=== PATIENT | female | born 1975 | race Hispanic/Latino ===

== ENCOUNTER 2019-01-02 23:07 | Emergency (ER) | payer BC ==
[2019-01-03] MEDS ORDERED: SODIUM CHLORIDE 0.9% 1000ML 2,000 ML IV ONE (00:34)
[2019-01-03 00:40] LABS: BASOPHILS % (AUTO) 0.8 % (0.0-5.0); HEMATOCRIT 39.2 % (36-48); LYMPHOCYTES % (AUTO) 19.7 % (21.0-51.0); MEAN CORPUSCULAR HEMOGLOBIN 27.1 pg (27.0-33.0); MEAN CORPUSCULAR HGB CONC 33.7 g/dL (32.0-36.0); MEAN CORPUSCULAR VOLUME 80.4 fL (79-99); MONOCYTES % (AUTO) 9.2 % (3.0-13.0); NEUTROPHILS % (AUTO) 69.3 % (40.0-77.0); NUCLEATED RED BLOOD CELLS 0.1 % (0.0-0.19); PLATELET COUNT (AUTO) 227 K/uL (130-400); RED BLOOD CELL COUNT(AUTO) 4.87 MIL/uL (4.00-5.50); WHITE BLOOD COUNT (AUTO) 7.4 K/uL (4.8-10.8)
[2019-01-03 00:46] LABS: APPEARANCE,URINE Cloudy (CLEAR); BILIRUBIN,URINE Negative (NEGATIVE); COLOR,URINE Dark Yellow (YELLOW); GLUCOSE, URINE (UA) >=1000 mg/dL (NEGATIVE); KETONES,URINE 15 mg/dL (NEGATIVE); LEUKOCYTE ESTERASE ,URINE Small (NEGATIVE); NITRATE,URINE Negative (NEGATIVE); OCCULT BLOOD,URINE Moderate (NEGATIVE); PH,URINE 5.5 (5.0-8.0); PROTEIN,URINE POS 1+ mg/dL (NEGATIVE)
[2019-01-03 00:53] LABS: BACTERIA,URINE Few /HPF (None Seen); MUCUS,URINE Moderate LPF (None Seen); SQUAMOUS EPITHELIAL CELL,UR Few /HPF (0-2)
[2019-01-03 00:53] LABS: CREATININE 0.9 mg/dL (0.5-1.5); POTASSIUM 3.8 mmol/L (3.5-5.1)
[2019-01-03 00:57] LABS: BILIRUBIN,TOTAL 0.6 mg/dL (0.2-1.0); TOTAL PROTEIN, SERUM 7.9 g/dL (6.0-8.3)
== END 2019-01-03 02:00 | disposition home or self-care (01) ==
LOC: EDH 23:07
DX: B34.9 Viral infection, unspecified (principal); E11.65 Type 2 diabetes mellitus with hyperglycemia; E86.9 Volume depletion, unspecified; I10 Essential (primary) hypertension
CPT/HCPCS: 36415; 80053; 81001; 82550; 82948; 83605; 85025; 87804 ×2; 96360; 99285; J7030

== ENCOUNTER 2019-03-19 22:42 | Emergency (ER) | payer BC ==
[2019-03-20] MEDS ORDERED: SODIUM CHLORIDE 0.9% 1000ML 1,000 ML IV ONE (00:11)
[2019-03-20] MEDS ORDERED: CLINDAMYCIN 900 MG/D5% WATER 50 ML IV ONE (00:13)
[2019-03-20 00:24] LABS: BASOPHILS % (AUTO) 0.8 % (0.0-5.0); EOSINOPHILS % (AUTO) 1.6 % (0.0-8.0); HEMATOCRIT 38.5 % (36-48); LYMPHOCYTES % (AUTO) 15.5 % (21.0-51.0); MEAN CORPUSCULAR HEMOGLOBIN 25.9 pg (27.0-33.0); MEAN CORPUSCULAR HGB CONC 32.6 g/dL (32.0-36.0); MEAN CORPUSCULAR VOLUME 79.3 fL (79-99); MONOCYTES % (AUTO) 7.6 % (3.0-13.0); NEUTROPHILS % (AUTO) 74.5 % (40.0-77.0); PLATELET COUNT (AUTO) 195 K/uL (130-400); RED BLOOD CELL COUNT(AUTO) 4.86 MIL/uL (4.00-5.50); RED CELL DISTRIBUTION WIDTH 16.2 % (11.0-15.5); WHITE BLOOD COUNT (AUTO) 12.9 K/uL (4.8-10.8)
[2019-03-20 00:32] LABS: CREATININE 0.6 mg/dL (0.5-1.5); POTASSIUM 3.9 mmol/L (3.5-5.1)
[2019-03-20 00:36] LABS: ALBUMIN 3.2 g/dL (3.5-5.0); BILIRUBIN,TOTAL 0.4 mg/dL (0.2-1.0); TOTAL PROTEIN, SERUM 7.7 g/dL (6.0-8.3)
[2019-03-20] MEDS ORDERED: KETOROLAC TROMETHAMINE 30MG/ML ONE (01:23)
[2019-03-20] MEDS ORDERED: ORPHENADRINE CITRATE 30 MG/ML ML ONE (02:33)
== END 2019-03-20 02:51 | disposition home or self-care (01) ==
LOC: EDH 22:42
DX: L04.0 Acute lymphadenitis of face, head and neck (principal); L03.211 Cellulitis of face; I10 Essential (primary) hypertension; E11.9 Type 2 diabetes mellitus without complications; E78.00 Pure hypercholesterolemia, unspecified
CPT/HCPCS: 36415; 70460; 80053; 85025; 87040; 96365; 96375; 99285; J1885; J2360; J3490; J7030

== ENCOUNTER 2021-03-07 12:00 | Inpatient (IN) | payer BC ==
[~2021-03-07] VITALS: Ht 177.8 cm; Wt 106.9 kg
[2021-03-07 12:19] LABS: BASOPHILS % (AUTO) 0.4 % (0.0-5.0); EOSINOPHILS % (AUTO) 2.3 % (0.0-8.0); HEMATOCRIT 42.5 % (36-48); LYMPHOCYTES % (AUTO) 21.2 % (21.0-51.0); MEAN CORPUSCULAR HEMOGLOBIN 26.7 pg (27.0-33.0); MEAN CORPUSCULAR HGB CONC 30.8 g/dL (32.0-36.0); MEAN CORPUSCULAR VOLUME 86.7 fL (79-99); MONOCYTES % (AUTO) 7.7 % (3.0-13.0); NEUTROPHILS % (AUTO) 68.1 % (40.0-77.0); PLATELET COUNT (AUTO) 229 K/uL (130-400); RED CELL DISTRIBUTION WIDTH 14.4 % (11.0-15.5); WHITE BLOOD COUNT (AUTO) 11.5 K/uL (4.8-10.8)
[2021-03-08 09:41] VITALS: BP 138/82
[2021-03-08] MEDS ORDERED: METF-444 PO (10:24)
[2021-03-08] MEDS ORDERED: VALA500T PO (10:24)
[2021-03-08] MEDS ORDERED: INSU100V12 SQ (10:24)
[2021-03-09] VITALS (23 sets, daily range): BP systolic 104–147; BP diastolic 59–81
[2021-03-09] MEDS ORDERED: CEFAZOLIN SODIUM 100 GM IV SCH (06:00)
[2021-03-09] MEDS ORDERED: 0.9%NACL 1000ML 1,000 ML IV ONE (06:29)
[2021-03-09] MEDS: CEFAZOLIN SODIUM 1 GM VIAL ONE ×2 (07:00→08:14)
[2021-03-09] MEDS ORDERED: LIDOCAINE PF 100MG/5ML (2%) SYRINGE 5ML ONE (07:38)
[2021-03-09] MEDS ORDERED: SUCCINYLCHOLINE CHLORIDE 20 MG/ML 10 ML VIAL ONE (07:38)
[2021-03-09] MEDS ORDERED: ROCURONIUM 10MG/1ML SYR 10 MG/ML ML ONE ×2 (07:39→09:28)
[2021-03-09] MEDS ORDERED: PROPOFOL 10 MG/ML 20ML VIAL IV ONE (07:39)
[2021-03-09] MEDS ORDERED: FENTANYL CITRATE PF 50 MCG/1 ML 2ML VIAL ONE ×2 (07:39→09:56)
[2021-03-09] MEDS ORDERED: MIDAZOLAM HCL 1 MG/ML 2ML VIAL ONE (07:39)
[2021-03-09] MEDS ORDERED: MEPERIDINE-PF 25 MG/ML SYG ONE ×3 (09:10→11:02)
[2021-03-09] MEDS ORDERED: NEOSTIGMINE 5MG/5ML SYR IV ONE (09:55)
[2021-03-09] MEDS ORDERED: ONDANSETRON 4MG INJ ONE (09:55)
[2021-03-09] MEDS ORDERED: GLYCOPYRROLATE 1 MG/5 ML SYRINGE ONE (09:55)
[2021-03-09] MEDS ORDERED: CALDOLOR 800MG+NS 250ML 250 ML IV ONE (10:01)
[2021-03-09] MEDS ORDERED: BISACODYL 10 MG SUPP.RECT RC PRN (10:30)
[2021-03-09] MEDS ORDERED: SIMETHICONE 80 MG TAB.CHEW PO PRN (10:30)
[2021-03-09] MEDS ORDERED: PROMETHAZINE HCL 25 MG/ML 1ML AMPULE IM PRN (10:30)
[2021-03-09] MEDS: CALDOLOR 800MG+NS 250ML 250 ML IV SCH ×2 (10:30→17:46)
[2021-03-09] MEDS ORDERED: IBUPROFEN 600 MG TABLET PO PRN (10:30)
[2021-03-09] MEDS: PROMETHAZINE HCL 25 MG/ML 1ML AMPULE IM PRN ×2 (11:53→16:18)
[2021-03-09] MEDS: MEPERIDINE-PF 75 MG/ML SYG IM PRN ×3 (11:55→22:33)
[2021-03-09] MEDS: 0.9%NACL 1000ML 1,000 ML IV SCH (16:25)
[2021-03-09] MEDS: METFORMIN HCL 500 MG TABLET PO SCH (17:45)
[2021-03-09] MEDS: ACETAMINOPHEN WITH CODEINE 1 TAB TAB PO PRN (20:15)
[2021-03-09] MEDS: INSULIN GLARGINE 100 UNITS/ML 10 ML VIAL SQ SCH (21:00)
[2021-03-09] MEDS: DOCUSATE SODIUM 100 MG CAP PO PRN (21:33)
[2021-03-10] MEDS: CALDOLOR 800MG+NS 250ML 250 ML IV SCH (02:36)
[2021-03-10] MEDS: 0.9%NACL 1000ML 1,000 ML IV SCH (02:37)
[2021-03-10 03:29] VITALS: BP 111/51
[2021-03-10 06:21] LABS: HEMATOCRIT 35.4 % (36-48); MEAN CORPUSCULAR HEMOGLOBIN 26.4 pg (27.0-33.0); MEAN CORPUSCULAR HGB CONC 31.1 g/dL (32.0-36.0); MEAN CORPUSCULAR VOLUME 84.9 fL (79-99); RED BLOOD CELL COUNT(AUTO) 4.17 MIL/uL (4.00-5.50); RED CELL DISTRIBUTION WIDTH 14.3 % (11.0-15.5); WHITE BLOOD COUNT (AUTO) 14.9 K/uL (4.8-10.8)
[2021-03-10] MEDS: ACETAMINOPHEN WITH CODEINE 1 TAB TAB PO PRN ×3 (07:15→23:20)
[2021-03-10 07:26] VITALS: BP 97/54
[2021-03-10] MEDS: METFORMIN HCL 500 MG TABLET PO SCH ×2 (08:00→17:00)
[2021-03-10] MEDS: DOCUSATE SODIUM 100 MG CAP PO PRN ×2 (08:37→20:42)
[2021-03-10] MEDS: VALACYCLOVIR HCL 500 MG TABLET PO SCH (08:41)
[2021-03-10 11:51] VITALS: BP 90/51
[2021-03-10] MEDS: SIMETHICONE 80 MG TAB.CHEW PO PRN ×2 (13:35→20:42)
[2021-03-10 17:09] VITALS: BP 121/61
[2021-03-10] MEDS: IBUPROFEN 800 MG TAB PO PRN (19:03)
[2021-03-10 19:34] VITALS: BP 119/63
[2021-03-10] MEDS: INSULIN GLARGINE 100 UNITS/ML 10 ML VIAL SQ SCH ×2 (21:48→21:54)
[2021-03-10 23:32] VITALS: BP 136/74
[2021-03-11] MEDS: 0.9%NACL 1000ML 1,000 ML IV SCH (01:20)
[2021-03-11 03:21] VITALS: BP 129/73
[2021-03-11] MEDS: IBUPROFEN 800 MG TAB PO PRN (06:54)
[2021-03-11] MEDS: VALACYCLOVIR HCL 500 MG TABLET PO SCH (09:00)
[2021-03-11] MEDS: DOCUSATE SODIUM 100 MG CAP PO PRN (09:13)
[2021-03-11] MEDS: SIMETHICONE 80 MG TAB.CHEW PO PRN (09:13)
[2021-03-11] MEDS ORDERED: DOCU-116 PO (10:47)
[2021-03-11] MEDS: ACETAMINOPHEN WITH CODEINE 1 TAB TAB PO PRN (10:55)
[2021-03-11] MEDS ORDERED: IBUP-2077 PO (10:56)
[2021-03-11] MEDS ORDERED: ACET1TAB25 PO (10:57)
[2021-03-11 12:00] VITALS: BP 129/81
== END 2021-03-11 12:25 | disposition home or self-care (01) | DRG 743 ==
LOC: DAHIP 03-09 06:24 → WSH 03-09 11:40
PROVIDERS: ADMIT Obstetrics & Gynecology; ATTEND Obstetrics & Gynecology
PROC: 0UT90ZZ Resection of Uterus, Open Approach (ICD-10-PCS; principal; 2021-03-09 08:17)
DX: D25.9 Leiomyoma of uterus, unspecified (principal); Z20.822 Contact with and (suspected) exposure to COVID-19; N92.0 Excessive and frequent menstruation with regular cycle; I10 Essential (primary) hypertension; E11.9 Type 2 diabetes mellitus without complications; E78.00 Pure hypercholesterolemia, unspecified; E66.9 Obesity, unspecified; Z68.33 Body mass index [BMI] 33.0-33.9, adult; Z87.442 Personal history of urinary calculi
CPT/HCPCS: 36415; 82948; 84703; 85025; 85027; 86850; 86900; 86901; 87635; A4344; G0378; J0330; J0690; J1741; J2001; J2175; J2250; J2405; J2550; J2704; J2710; J3010; J3490; J7030

== ENCOUNTER 2023-06-17 11:26 | Emergency (ER) | payer BC ==
[~2023-06-17] VITALS: Ht 177.8 cm; Wt 106.6 kg
[~2023-06-17 11:26] MED LIST: ACET-2079 PO; DOCU-116 PO; IBUP-2077 PO; INSU100V12 SQ; METF-444 PO; VALA500T PO
[2023-06-17] MEDS ORDERED: FAMC500T8 PO (13:13)
[2023-06-17] MEDS ORDERED: METH4TAB3 PO (13:13)
[2023-06-17 13:42] VITALS: BP 156/80; PULSE 76; RESP 18; O2SAT 96
== END 2023-06-17 13:45 | disposition home or self-care (01) ==
LOC: EDH 11:26
DX: G51.0 Bell's palsy (principal); I10 Essential (primary) hypertension; E11.9 Type 2 diabetes mellitus without complications; E78.00 Pure hypercholesterolemia, unspecified; Z79.84 Long term (current) use of oral hypoglycemic drugs; Z79.899 Other long term (current) drug therapy; Z90.710 Acquired absence of both cervix and uterus
CPT/HCPCS: 70450

== ENCOUNTER → 2023-11-07 | Outpatient (CLI) | payer BC ==
[~2023-11-07] MED LIST changes: +FAMC500T8 PO; +METH4TAB3 PO
== END | disposition home or self-care (01) ==
LOC: RAH 12:41
PROVIDERS: ATTEND Internal Medicine
DX: I34.1 Nonrheumatic mitral (valve) prolapse (principal); R06.02 Shortness of breath; I10 Essential (primary) hypertension; E66.9 Obesity, unspecified; E11.9 Type 2 diabetes mellitus without complications; E78.00 Pure hypercholesterolemia, unspecified
CPT/HCPCS: 93306